=== PATIENT | male | born 1945 | race Caucasian/White ===

== ENCOUNTER 2018-09-20 13:22 | Observation (INO) ==
--- NOTE | 2018-09-20 14:17 | ED ---
HPI General Chief Complaint: Arrhythmia / Palpitations Stated Complaint: doc sent/abnl EKG Time Seen by Provider: 09/20/18 14:05 Source: patient Mode of arrival: ambulatory Limitations: no limitations History of Present Illness HPI narrative: 73-year-old male with PMH of A. fib, HTN, on diltiazem, metoprolol, aspirin and Eliquis with an implanted loop recorder presents the ED for evaluation of 3-day history of palpitations and upper abdominal discomfort. He denies headache, vision changes, dizziness, weakness. He endorses history of appendectomy. The patient denies shortness of breath, nausea, vomiting, diaphoresis. He endorses well formed nonbloody stools daily. He states that he went to his PCP today, was found to be in A. flutter and was sent to the emergency room. States that he ran out of Eliquis 3 days ago. He is non- smoker. He is followed by Dr. Sherman. Related Data Home Medications Medication Instructions Recorded Confirmed apixaban [Eliquis] 5 mg PO BID 09/20/18 09/20/18 aspirin [Aspirin Low Dose] 81 mg PO BID 09/20/18 09/20/18 bupropion HCl [Wellbutrin XL] 150 mg PO QAM 09/20/18 09/20/18 diltiazem HCl 360 mg PO DAILY 09/20/18 09/20/18 metoprolol tartrate 25 mg PO BID 09/20/18 09/20/18 Allergies Allergy/AdvReac Type Severity Reaction Status Date / Time No Known Allergies Allergy Verified 09/20/18 13:40 Review of Systems ROS: all other systems reviewed are negative [facility] Medical History Medical History Afib (Acute) Bladder cancer (Acute) Hypertension (Acute) Prostate cancer (Acute) Status post placement of implantable loop recorder (Acute) Surgical History Surgical History History of appendectomy (Acute) Social History Social History Substance History: No History of Abuse Smoking Status: Former smoker How Often Do You Have a Drink Containing Alcohol: 4 or more times a week Recent Travel in [facility] within the Last 8 Weeks: No Recent Out of Country Travel within the Last 8 Weeks: No Immunization History Tetanus Immunization: Unsure Exam Narrative Exam Narrative: GENERAL: Well-nourished, well-developed, pleasant white male in no acute distress. SKIN: Focused skin assessment warm/dry. HEAD: Atraumatic. Normocephalic. EYES: Pupils equal and round. No scleral icterus. No injection or drainage. ENT: No nasal bleeding or discharge. Mucous membranes pink and moist. NECK: Trachea midline. No JVD. CARDIOVASCULAR: Irregularly irregular rate and rhythm. Holosystolic murmur. RESPIRATORY: No accessory muscle use. Clear to auscultation. Breath sounds equal bilaterally. GASTROINTESTINAL: Abdomen soft, non-tender, nondistended. Hepatic and splenic margins not palpable. MUSCULOSKELETAL: No obvious deformities. No clubbing. No cyanosis. No edema. NEUROLOGICAL: Awake and alert. No obvious cranial nerve deficits. Motor grossly within normal limits. Normal speech. PSYCHIATRIC: Appropriate mood and affect; insight and judgment normal. Course Initial Documented Vital Signs Temperature 98.0 F 09/20/18 13:37 Pulse Rate 105 H 09/20/18 13:37 Respiratory Rate 18 09/20/18 13:37 Blood Pressure 134/92 H 09/20/18 13:37 Pulse Oximetry 96 09/20/18 13:37 Last Documented Vital Signs Temperature 98.0 F 09/20/18 13:37 Pulse Rate 109 H 09/20/18 15:12 Respiratory Rate 24 09/20/18 15:12 Blood Pressure 166/81 H 09/20/18 15:12 Pulse Oximetry 96 09/20/18 15:12 Medical Decision Making [facility] Narrative Medical decision making narrative: 73-year-old male with PMH of A. fib, HTN, on diltiazem, metoprolol, aspirin and Eliquis with an implanted loop recorder presents the ED for evaluation of 3-day history of palpitations. States that he ran out of Eliquis 3 days ago. He is non-smoker. He is followed by Dr. Sherman. EKG reveals a flutter with a rate around 109. Physical exam reveals a regular rate with noted murmur. Otherwise unremarkable. Troponin negative x1. No concerning lab abnormalities. Will admit for observation and evaluation by the supervisor agency appointments. Patient is agreeable with this plan. I spoke with Dr. Monreal who agrees to accept the patient to the medicine service. Please see medicine notes for disposition. Medical Screen Exam Complete: Yes Emergency Medical Condition: Yes Differential Diagnosis Differential Diagnosis: dysrhythmia versus metabolic derangement versus ACS versus other Lab Data Result diagrams: 09/20/18 14:27 09/20/18 14:27 Lab Results 09/20/18 09/20/18 09/20/18 Range/Units 14:27 14:27 14:27 WBC 8.4 (4.0-11.0) th/mm3 RBC 4.45 L (4.50-5.90) mil/mm3 Hgb 15.6 (13.0-17.0) gm/dL Hct 44.7 (39.0-51.0) % MCV 100.5 H (80.0-100.0) fL MCH 35.1 H (27.0-34.0) pg MCHC 34.9 (32.0-36.0) % RDW 13.8 (11.6-17.2) % Plt Count 210 (150-450) th/mm3 MPV 7.9 (7.0-11.0) fL Neut % (Auto) 55.2 (16.0-70.0) % Lymph % (Auto) 29.7 (9.0-44.0) % [place] % (Auto) 12.5 H (0.0-8.0) % Eos % (Auto) 1.9 (0.0-4.0) % Baso % (Auto) 0.7 (0.0-2.0) % Neut # (Auto) 4.6 (1.8-7.7) th/mm3 Lymph # (Auto) 2.5 (1.0-4.8) th/mm3 [place] # (Auto) 1.0 H (0.0-0.9) th/mm3 Eos # (Auto) 0.2 (0.0-0.4) th/mm3 Baso # (Auto) 0.1 (0.0-0.2) th/mm3 WBC Differential . Differential Comment Auto diff final PT 10.7 (9.8-11.6) sec INR 1.1 Ratio Sodium 137 (136-145) meq/L Potassium 4.3 (3.5-5.1) meq/L Chloride 105 (98-107) meq/L Carbon Dioxide 24.8 (21.0-32.0) meq/L Anion Gap 7 (5-15) meq/L BUN 15 (7-18) mg/dL Creatinine 0.91 (0.60-1.30) mg/dL Estimated GFR 81 L (>89) mL/min Random Glucose 102 (74-106) mg/dL Calcium 8.4 L (8.5-10.1) mg/dL Total Bilirubin 1.0 (0.2-1.0) mg/dL AST 40 H (15-37) U/L ALT 38 (12-78) U/L Alkaline Phosphatase 102 (45-117) U/L Troponin I Less than 0.02 L (0.02-0.05) ng/mL Total Protein 7.9 (6.4-8.2) g/dL Albumin 3.9 (3.4-5.0) g/dL Lipase 138 (73-393) U/L Imaging Data Radiologist's impression: Chest X-Ray 09/20/18 14:19 CONCLUSION: 1. No acute cardiopulmonary disease. ECG Data EKG Prior to Arrival: Yes Attestation: I personally reviewed and interpreted this ECG as follows: Interpretation: Rate 91, a flutter. LAD. No acute ST changes. Reviewed by . Discharge Plan Discharge Disposition Patient Disposition: ED Admit(ED Internal Use Only) Discharge Order Discharge Orders: ED Use Only Admit Order (Routine); Ordered 09/20/18 Ordered By: Frances Gonzales Physicians Team ED Provider: Jenny Worthington ED Midlevel Provider: Frances Gonzales Primary Care Provider: Ebony Coyle Attending Provider: Zac Monreal Other Providers: Hugo Vazquez Discharge Interventions Interventions: Vital Signs Last Done: 09/20/18 15:12 Status ED Status: Admitted Observation Patient
[2018-09-20 14:46] LABS: Baso # (Auto) 0.1 th/mm3 (0.0-0.2); Baso % (Auto) 0.7 % (0.0-2.0); Eos # (Auto) 0.2 th/mm3 (0.0-0.4); Eos % (Auto) 1.9 % (0.0-4.0); Hematocrit 44.7 % (39.0-51.0); Hemoglobin 15.6 gm/dL (13.0-17.0); Lymph # (Auto) 2.5 th/mm3 (1.0-4.8); Lymph % (Auto) 29.7 % (9.0-44.0); Mean Corpuscular HGB Conc 34.9 % (32.0-36.0); Mean Corpuscular Hemoglobin 35.1 pg (27.0-34.0); Mean Corpuscular Volume 100.5 fL (80.0-100.0); Mean Platelet Volume 7.9 fL (7.0-11.0); Mono % (Auto) 12.5 % (0.0-8.0); Neut # (Auto) 4.6 th/mm3 (1.8-7.7); Neut % (Auto) 55.2 % (16.0-70.0); Platelet Count 210 th/mm3 (150-450); Red Blood Count 4.45 mil/mm3 (4.50-5.90); Red Cell Distribution Width 13.8 % (11.6-17.2); White Blood Count 8.4 th/mm3 (4.0-11.0)
[2018-09-20 15:06] LABS: Alkaline Phosphatase 102 U/L (45-117); Total Protein 7.9 g/dL (6.4-8.2)
[2018-09-20 15:07] LABS: Alanine Aminotransferase 38 U/L (12-78); Albumin 3.9 g/dL (3.4-5.0); Anion Gap 7 meq/L (5-15); Aspartate Aminotransferase 40 U/L (15-37); Blood Urea Nitrogen 15 mg/dL (7-18); Calcium 8.4 mg/dL (8.5-10.1); Carbon Dioxide 24.8 meq/L (21.0-32.0); Chloride 105 meq/L (98-107); Glomerular Filtration Rate 81 mL/min (>89); Glucose,Random 102 mg/dL (74-106); Lipase 138 U/L (73-393); Potassium 4.3 meq/L (3.5-5.1); Sodium 137 meq/L (136-145)
[2018-09-20 15:12] LABS: INR 1.1 Ratio; Prothrombin Time 10.7 sec (9.8-11.6)
--- NOTE | 2018-09-20 15:31 | XR ---
EXAM DATE: 09/20/2018 3:11 PM EST AGE/SEX: 73 years / Male INDICATIONS: Chest pressure, sent by doctor, abnormal EKG CLINICAL DATA: This is the patient's initial encounter. Patient reports that signs and symptoms have been present for 1 day and indicates a pain score of 0/10. MEDICAL/SURGICAL HISTORY: Chronic obstructive pulmonary disease. Emphysema. atrial flutter . loop recorder COMPARISON: POI, XR CHEST PA AND LAT, 11/19/2017. . FINDINGS: Cardiac event monitor stable in position. No new focal pleural or parenchymal opacities. The cardiome diastinal contours are unremarkable. Osseous structures are intact. CONCLUSION: 1. No acute cardiopulmonary disease. Electronically signed by: Elie Johns MD 09/20/2018 3:30 PM EST
[2018-09-20] MEDS ORDERED: Acetaminophen 325 MG Tablet PO PRN (15:52)
[2018-09-20] MEDS ORDERED: Bisacodyl 10 MG Supp RECTAL PRN (15:52)
--- NOTE | 2018-09-20 16:07 | P.HPIM ---
History of Present Illness Primary Care Physician: Ebony Coyle Chief Complaint: weakness, abdominal discomfort History of Present Illness: 73-yo m with h/o A. fib, HTN who was referred to the ER by his PCP for evaluation of Atrial flutter. Patient reports having general malaise and abdominal discomfort for the last 3 days. He went to his PCP today for evaluation was found to be in A.flutter, hence was referred here. He denies palpitations, dizziness/lightheadedness,shortness of breath or chest pain. No syncope. No exertional symptoms. No nausea or vomiting. He has not taken his medication today. He says he has a loop recorder inserted 3 years ago. ROS is negative except as stated in HPI. On presentation in ER patient noted to be in A flutter, rate ~110. 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 Review of Systems Review of Systems: all other systems reviewed are negative [facility] Medical History Medical History Afib (Acute) Bladder cancer (Acute) Hypertension (Acute) Prostate cancer (Acute) Status post placement of implantable loop recorder (Acute) Surgical History Surgical History History of appendectomy (Acute) Social History Social History Substance History: No History of Abuse Smoking Status: Former smoker How Often Do You Have a Drink Containing Alcohol: 4 or more times a week Recent Travel in [facility] within the Last 8 Weeks: No Recent Out of Country Travel within the Last 8 Weeks: No Immunization History Tetanus Immunization: Unsure Medications and Allergies Allergies Allergy/AdvReac Type Severity Reaction Status Date / Time No Known Allergies Allergy Verified 09/20/18 13:40 Home Medications Medication Instructions Recorded Confirmed Type apixaban [Eliquis] 5 mg PO BID 09/20/18 09/20/18 History aspirin [Aspirin Low Dose] 81 mg PO BID 09/20/18 09/20/18 History bupropion HCl [Wellbutrin XL] 150 mg PO QAM 09/20/18 09/20/18 History diltiazem HCl 360 mg PO DAILY 09/20/18 09/20/18 History metoprolol tartrate 25 mg PO BID 09/20/18 09/20/18 History Active Medications: Active Medications Acetaminophen (Tylenol) 650 mg PO Q4H PRN PRN Reason: Temp > 100.4 Al Hydroxide/Mg Hydroxide (Milk Of Magnesia Liq) 30 ml PO Q12H PRN PRN Reason: Mild Constipation Apixaban (Eliquis) 5 mg PO BID YENIFER Aspirin (Ecotrin) 81 mg PO BID YENIFER Bisacodyl (Dulcolax Supp) 10 mg RECTAL DAILY PRN PRN Reason: SEVERE CONSITIPATION Bupropion HCl (Wellbutrin Xl) 150 mg PO QAM YENIFER Lactulose (Lactulose Liq) 30 ml PO DAILY PRN PRN Reason: SEVERE CONSITIPATION Metoprolol Tartrate (Lopressor) 25 mg PO BID YENIFER Non-Formulary Medication (Diltiazem Hcl [Diltiazem Hcl]) 360 mg PO DAILY YENIFER Senna/Docusate Sodium (Helen-Colace) 1 tab PO BID YENIFER Sennosides (Senokot) 17.2 mg PO Q12H PRN PRN Reason: Moderate Constipation Sodium Chloride (Ns Flush) 2 ml IV.FLUSH UNSCH PRN PRN Reason: FLUSH AFTER USING IV ACCESS Sodium Chloride (Ns Flush) 2 ml IV.FLUSH BID YENIFER Sodium Chloride (Ns Flush) 2 ml IV.FLUSH PRN PRN PRN Reason: FLUSH AFTER USING IV ACCESS Physical Exam Vital signs: Last Vital Signs Temp 98.0 F 09/20/18 13:37 Pulse 109 H 09/20/18 15:12 Resp 24 09/20/18 15:12 BP 166/81 H 09/20/18 15:12 Pulse Ox 96 09/20/18 15:12 Intake & Output 09/18/18 09/19/18 09/20/18 09/21/18 06:59 06:59 06:59 06:59 Weight 96.162 kg Narrative: GENERAL: elderly man, not in distress CARDIOVASCULAR:tachycardic, regularly irregular rhythm, soft blowing murmur LUSB , no gallops, or rubs. RESPIRATORY: CTAB.No wheezes, rales, or rhonchi. GASTROINTESTINAL: Abdomen soft, non-tender, nondistended. Normal active bowel sounds MUSCULOSKELETAL: Extremities without clubbing, cyanosis, or edema. NEURO: Alert & Oriented x4 to person, place, time, situation. Moves all ext x4 Results Labs CBC & Chem 7: 09/20/18 14:27 09/20/18 14:27 Imaging Impressions Chest X-Ray 09/20/18 14:19 CONCLUSION: 1. No acute cardiopulmonary disease. Caprini VTE Risk Assessment Caprini VTE Risk Assessment: No/Low Risk (score <= 1) Caprini Risk Assessment Model: Point Value = 1 Point Value = 2 Point Value = 3 Point Value = 5 Age 41-60 Minor surgery BMI > 25 kg/m2 Swollen legs Varicose veins or History of unexplained or recurrent spontaneous Oral contraceptives or hormone replacement Sepsis (< 1 month) Serious lung disease, including pneumonia (< 1 month) Abnormal pulmonary function Acute myocardial infarction Congestive heart failure (< 1 month) History of inflammatory bowel disease Medical patient at bed rest Age 61-74 Arthroscopic surgery Major open surgery (> 45 min) Laparoscopic surgery (> 45 min) Malignancy Confined to bed (> 72 hours) Immobilizing plaster cast Central venous access Age >= 75 History of VTE Family history of VTE Factor V Leiden Prothrombin [id number] Lupus anticoagulant Anticardiolipin antibodies Elevated serum homocysteine Heparin-induced thrombocytopenia Other congenital or acquired thrombophilia Stroke (< 1 month) Elective arthroplasty Hip, pelvis, or leg fracture Acute spinal cord injury (< 1 month) Prophylaxis Regimen: Total Risk Factor Score Risk Level Prophylaxis Regimen 0-1 Low Early ambulation 2 Moderate Order ONE of the following: *Sequential Compression Device (SCD) *Heparin 5000 units SQ BID 3-4 Higher Order ONE of the following medications: *Heparin 5000 units SQ TID *Enoxaparin/Lovenox 40 mg SQ daily (WT < 150 kg, CrCl > 30 mL/min) *Enoxaparin/Lovenox 30 mg SQ daily (WT < 150 kg, CrCl > 10-29 mL/min) *Enoxaparin/Lovenox 30 mg SQ BID (WT < 150 kg, CrCl > 30 mL/min) AND/OR *Sequential Compression Device (SCD) 5 or more Highest Order ONE of the following medications: *Heparin 5000 units SQ TID (Preferred with Epidurals) *Enoxaparin/Lovenox 40 mg SQ daily (WT < 150 kg, CrCl > 30 mL/min) *Enoxaparin/Lovenox 30 mg SQ daily (WT < 150 kg, CrCl > 10-29 mL/min) *Enoxaparin/Lovenox 30 mg SQ BID (WT < 150 kg, CrCl > 30 mL/min) AND *Sequential Compression Device (SCD) Assessment and Plan Plan 73 yo M with h/o HTN,Atrial fibrillation who presented to ER after being referred by his PCP for evaluation for Atrial flutter. Atrial Flutter-- variable conduction, rate ~110. troponin negative. -resume his usual rate control home medication, resume Apixaban. monitor on telemetry. 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 check TSH. HTN-uncontrolled, he has not taken his meds,which will be resumed. low salt diet. Macrocytosis--H/h normal. check B12 and TSH levels. DVT ppx-already anticoagulated as above.
[2018-09-20] MEDS: Metoprolol Tartrate 25 MG Tablet PO SCH ×2 (17:32→20:11)
[2018-09-20] MEDS: buPROPion 150 MG 12 HR Tablet PO SCH (17:35)
--- NOTE | 2018-09-20 19:30 | ECG ---
Date Performed: 09/20/2018 Time Performed: 13:43:31 PTAGE: 73 years EKG: ATRIAL FLUTTER WITH VARIABLE BLOCK MARKED LEFT AXIS DEVIATION ABNORMAL ECG NO PREVIOUS TRACING DOCTOR: Frances Monge Interpretating Date/Time 09/23/2018 07:35:12
[2018-09-20] MEDS: Senna/Docusate Sodium 8.6/50 MG Tablet PO SCH (20:12)
--- NOTE | 2018-09-20 21:28 | ECG ---
Date Performed: 09/20/2018 Time Performed: 17:09:59 PTAGE: 73 years EKG: ATRIAL FLUTTER WITH RAPID VENTRICULAR RESPONSE ABNORMAL ECG PREVIOUS TRACING : 09/20/2018 13.43 Since the previous tracing, no significant change noted DOCTOR: Frances Monge Interpretating Date/Time 09/20/2018 21:27:56
--- NOTE | 2018-09-20 23:49 | MB ---
cc: Hugo Vazquez DO DATE: 09/20/2018 REASON FOR CONSULTATION: Atrial flutter. HISTORY OF PRESENT ILLNESS: Rachelle Espinal is a pleasant 73-year-old male who sees my partner, Dr. Derrick Sherman in the office and presented to [facility] Emergency Room at the request of his primary care physician. He was in to see Dr. Ebony Coyle today and apparently was found to be in atrial flutter with a rapid ventricular response. He has had general malaise and some abdominal discomfort for the past 3 days. Because of his atrial flutter with rapid response, he was sent to the emergency room. He denies palpitations, dizziness, lightheadedness, shortness of breath or chest pain. In seeing him, he is currently hemodynamically stable. PAST MEDICAL HISTORY: 1. Atrial fibrillation/atrial flutter. 2. Bladder cancer. 3. Hypertension. 4. Prostate cancer. PAST SURGICAL HISTORY: [employer] loop recorder placement (02/27/2016, serial number [id number]). ALLERGIES: NO KNOWN DRUG ALLERGIES. MEDICATIONS: 1. Aspirin 81 mg b.i.d. 2. Metoprolol 25 mg b.i.d. 3. Cardizem-CD 360 mg daily. 4. Wellbutrin XL 150 mg daily. 5. Eliquis 5 mg b.i.d. FAMILY HISTORY: Denies sudden cardiac within the family. SOCIAL HISTORY: The patient is a former smoker. He drinks occasionally. Denies drug abuse. REVIEW OF SYSTEMS: Fourteen systems were reviewed including osteopathic. Pertinent positives and negatives above, otherwise negative. PHYSICAL EXAMINATION: VITAL SIGNS: Temperature 97.7, heart rate 109, blood pressure 166/81, respirations 24, pulse oximetry 96% on room air. GENERAL: The patient appears well, in no acute distress, alert, awake and oriented x 3. HEENT: Extraocular muscles intact. Mucous membranes moist. NECK: Supple. No JVD at 45 degrees. No carotid bruits heard bilaterally. Carotid upstroke is brisk in nature. HEART: Irregularly irregular. Positive first and second heart sounds with no noted murmurs, gallops or rubs. LUNGS: Clear to auscultation bilaterally. No wheezes, rales or rhonchi. ABDOMEN: Soft, nontender, nondistended. No organomegaly noted. EXTREMITIES: Show no clubbing, cyanosis or edema. Femoral and distal pulses are intact bilaterally. NEUROLOGIC: No focal deficits. SKIN: Warm, dry and intact. OSTEOPATHIC: No kyphoscoliosis, lordosis or paraspinal tender points. LABORATORY DATA: Hemoglobin 15.6, hematocrit 44.7, platelets 210. Potassium 4.3, BUN 15, creatinine 0.91. Troponin less than 0.02. Electrocardiogram (09/20/2018 at 1709): Atrial flutter with rapid ventricular response. IMPRESSION: 1. Atrial flutter with rapid ventricular response. 2. Hypertension. 3. Malaise. RECOMMENDATIONS: 1. Mr. Espinal presented with atrial flutter with rapid ventricular response. In review of office notes, it appears that he is mostly controlled, although he does have some episodes of rapid ventricular response on his previous loop recorder interrogation in the office. 2. He is currently on metoprolol and Cardizem, and we will continue these. 3. He has recently stopped Eliquis over the past few days, as [facility] and its extremely expensive. He plans on stopping by to get samples to cover him through September. 4. We will plan on restarting him on his Eliquis as well as his other medications. 5. We will keep him n.p.o. after midnight and reevaluate him tomorrow and if still having trouble controlling his heart rate, we will consider a JAMEL with cardioversion to try and place him back into sinus rhythm. 6. If unable to control his heart rate further, whether patient or outpatient, consideration could be made for an atrial flutter ablation with Dr. Vanessa. Thank you for allowing me to see Danielle Espinal. If there are any questions, please do not hesitate to call. Hugo Vazquez, DO VGP/regnie/rr , 09:46 PM , 09:58 PM
[2018-09-21] MEDS: buPROPion 150 MG 12 HR Tablet PO SCH (08:12)
[2018-09-21] MEDS: Metoprolol Tartrate 25 MG Tablet PO SCH (08:12)
[2018-09-21] MEDS: Senna/Docusate Sodium 8.6/50 MG Tablet PO SCH (08:13)
[2018-09-21] MEDS ORDERED: dilTIAZem CD 180 MG Capsule PO SCH (09:00)
[2018-09-21 10:19] LABS: Magnesium 2.3 mg/dL (1.5-2.5)
[2018-09-21 10:44] LABS: Thyroid Stimulating Hormone 0.941 uIU/mL (0.358-3.740)
--- NOTE | 2018-09-21 11:32 | P.PN ---
Subjective Interval history: Nursing denies any acute changes overnight. Patient himself says he feels fine. Denies any pain. Says the only thing he felt yesterday that prompted him to go to his PCPs office (was a window directed him to come to the ER for an abnormal EKG close) was a hard to describe chest sensation which she best matches with a feeling you get after working out excessively. Denies any pressure sensation, denies palpitations since last night. Denies any chest pains. Physical Exam Vital signs: Vital Signs 09/20/18 13:37 09/20/18 14:03 09/20/18 14:29 Temperature 98.0 F Pulse Rate 105 H 69 108 H Respiratory Rate 18 19 Blood Pressure 134/92 H 139/99 H Pulse Oximetry 96 98 96 09/20/18 15:12 09/20/18 17:32 09/20/18 20:00 Temperature 97.7 F 98.4 F Pulse Rate 109 H 100 H 96 H Respiratory Rate 24 22 19 Blood Pressure 166/81 H 172/97 H 154/90 H Pulse Oximetry 96 97 98 09/21/18 00:00 09/21/18 08:00 09/21/18 09:02 Temperature 97.9 F 97.6 F Pulse Rate 85 70 Respiratory Rate 19 18 Blood Pressure 143/84 H 138/81 138/81 Pulse Oximetry 96 97 Intake & Output 09/20/18 09/21/18 09/21/18 18:59 06:59 18:59 Intake Total 220 / 220 Balance 220 / 220 Weight 96.162 kg Intake: Oral 220 / 220 Other: Date of Last Bowel Movement 09/19/18 Weight On Admission 96.162 kg Narrative: 3/6 ejection murmur, irregular heart rhythm, regular heart rate that slightly fluctuates to mildly tachycardic Clear lungs bilaterally, unlabored breathing No lower extremity edema Awake and alert Results - Labs CBC & Chem 7: 09/20/18 14:27 09/20/18 14:27 Laboratory Results - last 24 hr 09/20/18 09/20/18 09/20/18 14:27 14:27 14:27 WBC 8.4 RBC 4.45 L Hgb 15.6 Hct 44.7 MCV 100.5 H MCH 35.1 H MCHC 34.9 RDW 13.8 Plt Count 210 MPV 7.9 Neut % (Auto) 55.2 Lymph % (Auto) 29.7 [place] % (Auto) 12.5 H Eos % (Auto) 1.9 Baso % (Auto) 0.7 Neut # (Auto) 4.6 Lymph # (Auto) 2.5 [place] # (Auto) 1.0 H Eos # (Auto) 0.2 Baso # (Auto) 0.1 WBC Differential . Differential Comment Auto diff final PT 10.7 INR 1.1 Sodium 137 Potassium 4.3 Chloride 105 Carbon Dioxide 24.8 Anion Gap 7 BUN 15 Creatinine 0.91 Estimated GFR 81 L Random Glucose 102 Calcium 8.4 L Magnesium Total Bilirubin 1.0 AST 40 H ALT 38 Alkaline Phosphatase 102 Troponin I Less than 0.02 L Total Protein 7.9 Albumin 3.9 Lipase 138 Vitamin B12 TSH 09/20/18 14:27 WBC RBC Hgb Hct MCV MCH MCHC RDW Plt Count MPV Neut % (Auto) Lymph % (Auto) [place] % (Auto) Eos % (Auto) Baso % (Auto) Neut # (Auto) Lymph # (Auto) [place] # (Auto) Eos # (Auto) Baso # (Auto) WBC Differential Differential Comment PT INR Sodium Potassium Chloride Carbon Dioxide Anion Gap BUN Creatinine Estimated GFR Random Glucose Calcium Magnesium 2.3 Total Bilirubin AST ALT Alkaline Phosphatase Troponin I Total Protein Albumin Lipase Vitamin B12 718 TSH 0.941 - Imaging Impressions Chest X-Ray 09/20/18 14:19 CONCLUSION: 1. No acute cardiopulmonary disease. Assessment and Plan - Plan 73 yo M with h/o HTN,Atrial fibrillation who presented to ER after being referred by his PCP for evaluation for Atrial flutter. Atrial Flutter-- -continue home Eliquis, still slightly tachycardic this morning, on scheduled for JAMEL to rule out any cardiac thrombus and then undergo cardioversion -Continue home metoprolol and diltiazem HTN-uncontrolled -Continue home medications, he has not taken his meds,which will be resumed. low salt diet. Macrocytosis--B12 and TSH pending - wnl DVT ppx-already anticoagulated as above. Addendum: Discussed case with cardiology, patient likely has an intracardiac thrombus, cardioversion was aborted. Findings discussed w/ pt and daughter. Patient was emphasized that he needed to get a dose of Eliquis tonight - either to stay inpatient until evening dose or as an outpatient but again tonight. He is expected to get samples from foot piece assembler office, daughter reports family member is getting them today from office. Patient has met maximum benefit from hospitalization and is clinically stable for discharge. Patient was advised to refrain or abort any exertional activities should he start to get symptomatic with any chest pain or tachycardia or palpitations. Advised close f/u with cardiology outpt. On reexamination patient is awake and alert, no acute distress. Heart rate and rhythm are both regular now, murmur is 3/6 ejection unchanged.
--- NOTE | 2018-09-22 00:49 | P.PNCA ---
Subjective Interval history: No events overnight Aflutter on telemetry Medications and Allergies Active Medications: Active Medications Acetaminophen (Tylenol) 650 mg PO Q4H PRN PRN Reason: Temp > 100.4 Al Hydroxide/Mg Hydroxide (Milk Of Magnesia Liq) 30 ml PO Q12H PRN PRN Reason: Mild Constipation Apixaban (Eliquis) 5 mg PO BID [facility] Last Admin: 09/21/18 08:12 Dose: 5 mg Aspirin (Ecotrin) 81 mg PO BID [facility] Last Admin: 09/21/18 08:12 Dose: Not Given Bisacodyl (Dulcolax Supp) 10 mg RECTAL DAILY PRN PRN Reason: SEVERE CONSITIPATION Bupropion HCl (Wellbutrin Sr) 150 mg PO DAILY [facility] Last Admin: 09/21/18 08:12 Dose: 150 mg Diltiazem HCl (Cardizem Cd 24hr) 360 mg PO DAILY [facility] Last Admin: 09/21/18 08:12 Dose: 360 mg Lactulose (Lactulose Liq) 30 ml PO DAILY PRN PRN Reason: SEVERE CONSITIPATION Metoprolol Tartrate (Lopressor) 25 mg PO BID [facility] Last Admin: 09/21/18 08:12 Dose: 25 mg Senna/Docusate Sodium (Helen-Colace) 1 tab PO BID [facility] Last Admin: 09/21/18 08:13 Dose: Not Given Sennosides (Senokot) 17.2 mg PO Q12H PRN PRN Reason: Moderate Constipation Sodium Chloride (Ns Flush) 2 ml IV.FLUSH BID [facility] Last Admin: 09/21/18 08:13 Dose: 2 ml Sodium Chloride (Ns Flush) 2 ml IV.FLUSH PRN PRN PRN Reason: FLUSH AFTER USING IV ACCESS Allergies Allergy/AdvReac Type Severity Reaction Status Date / Time No Known Allergies Allergy Verified 09/20/18 13:40 Home Medications Medication Instructions Recorded Confirmed Type apixaban [Eliquis] 5 mg PO BID 09/20/18 09/20/18 History aspirin [Aspirin Low Dose] 81 mg PO BID 09/20/18 09/20/18 History bupropion HCl [Wellbutrin XL] 150 mg PO QAM 09/20/18 09/20/18 History diltiazem HCl 360 mg PO DAILY 09/20/18 09/20/18 History metoprolol tartrate 25 mg PO BID 09/20/18 09/20/18 History Physical Exam Vital signs: Vital Signs 09/21/18 08:00 09/21/18 09:02 Temperature 97.6 F Pulse Rate 110 H 70 Respiratory Rate 18 Blood Pressure 138/81 138/81 Pulse Oximetry 97 97 Intake & Output 09/21/18 09/21/18 09/22/18 06:59 18:59 06:59 Other: Date of Last Bowel Movement 09/19/18 09/21/18 Narrative: GENERAL: NAD, AAOx3 SKIN: Warm and dry. HEAD: Atraumatic. Normocephalic. EYES: Pupils equal and round. No scleral icterus. No injection or drainage. ENT: No nasal bleeding or discharge. Mucous membranes pink and moist. NECK: Trachea midline. No JVD. CARDIOVASCULAR: Irregularly irregular RESPIRATORY: No accessory muscle use. Clear to auscultation. Breath sounds equal bilaterally. GASTROINTESTINAL: Abdomen soft, non-tender, nondistended. Hepatic and splenic margins not palpable. MUSCULOSKELETAL: Extremities without clubbing, cyanosis, or edema. No obvious deformities. NEUROLOGICAL: Awake and alert. No obvious cranial nerve deficits. Motor grossly within normal limits. Five out of 5 muscle strength in the arms and legs. Normal speech. PSYCHIATRIC: Appropriate mood and affect; insight and judgment normal. Results 09/20/18 14:27 09/20/18 14:27 Cardiac Enzymes 09/20/18 Range/Units 14:27 AST 40 H (15-37) U/L Troponin I Less than 0.02 L (0.02-0.05) ng/mL Coagulation 09/20/18 Range/Units 14:27 PT 10.7 (9.8-11.6) sec CBC 09/20/18 Range/Units 14:27 WBC 8.4 (4.0-11.0) th/mm3 RBC 4.45 L (4.50-5.90) mil/mm3 Hgb 15.6 (13.0-17.0) gm/dL Hct 44.7 (39.0-51.0) % Plt Count 210 (150-450) th/mm3 Neut # (Auto) 4.6 (1.8-7.7) th/mm3 Lymph # (Auto) 2.5 (1.0-4.8) th/mm3 [place] # (Auto) 1.0 H (0.0-0.9) th/mm3 Eos # (Auto) 0.2 (0.0-0.4) th/mm3 Baso # (Auto) 0.1 (0.0-0.2) th/mm3 Comprehensive Metabolic Panel 09/20/18 Range/Units 14:27 Sodium 137 (136-145) meq/L Potassium 4.3 (3.5-5.1) meq/L Chloride 105 (98-107) meq/L Carbon Dioxide 24.8 (21.0-32.0) meq/L BUN 15 (7-18) mg/dL Creatinine 0.91 (0.60-1.30) mg/dL Calcium 8.4 L (8.5-10.1) mg/dL AST 40 H (15-37) U/L ALT 38 (12-78) U/L Alkaline Phosphatase 102 (45-117) U/L Total Protein 7.9 (6.4-8.2) g/dL Albumin 3.9 (3.4-5.0) g/dL Intake and Output 09/21/18 09/21/18 09/22/18 14:59 22:59 06:59 Other: Date of Last Bowel Movement 09/21/18 - Imaging and Cardiology Imaging: Impressions Chest X-Ray 09/20/18 14:19 CONCLUSION: 1. No acute cardiopulmonary disease. Assessment and Plan - Assessment (1) Atrial flutter Code(s): I48.92 - Unspecified atrial flutter Status: Acute - Plan 1) Atrial Flutter Originally Aflutter with RVR, but hadn't taken his meds that day Heart rates better controlled on meds 2) Stopped Eliquis due to arellano Started back on it, will supervisor opening and picking samples in the office 3) JAMEL today showing possible left atrial appendage thrombus No cardioversion Continue on current meds including Eliquis 4) Cardiovascularly stable for discharge Follow up with Dr. Sherman
--- NOTE | 2018-09-22 00:57 | ECHRPT ---
Indication: afib and flutter CONCLUSIONS The left ventricular systolic function is low normal with an estimated ejection fraction in the rang e of 50- 55%. Possible thrombus in the left atrial appendage. Atrial septal aneurysm is present (benign finding). No atrial level shunt is demonstrated by color flow Doppler or agitated saline imaging. Descending aorta with mild atherosclerosis. Trace mitral valve regurgitation. BP: / HR: Rhythm: Atrial flutter Technical Quality: Medications Complications Proc. Components Anesthesia at the bedside for sedation FINDINGS LEFT VENTRICLE Normal left ventricular size. The left ventricular systolic function is low normal with an estimated ejection fraction in the rang e of 50- 55%. No regional wall motion abnormalities are present. RIGHT VENTRICLE Grossly normal LEFT ATRIUM The left atrial size is upper limits of normal. RIGHT ATRIUM The right atrial size is normal. ATRIAL APPENDAGES Possible thrombus in the left atrial appendage. ATRIAL SEPTUM Atrial septal aneurysm is present (benign finding). No atrial level shunt is demonstrated by color flow Doppler or agitated saline imaging. AORTA Descending aorta with mild atherosclerosis MITRAL VALVE Structurally normal mitral valve. Trace mitral valve regurgitation. No mitral valve stenosis. AORTIC VALVE Trileaflet aortic valve. Aortic valve sclerosis is present. No aortic valve regurgitation. No aortic valve stenosis. TRICUSPID VALVE Structurally normal tricuspid valve. No tricuspid valve stenosis or regurgitation. VESSELS No pulmonary valve regurgitation or stenosis. Hugo Vazquez DO (Electronically Signed) Final Date:22 September 2018 00:56
== END 2018-09-21 16:59 | disposition home or self-care (01) ==
LOC: NEPC 13:22 → NEDA 13:22 → NEPFCDU 16:30
PROVIDERS: ADMIT Hospitalist; ATTEND Hospitalist
DX: I10 Essential (primary) hypertension; E66.9 Obesity, unspecified; I48.91 Unspecified atrial fibrillation; Z68.31 Body mass index [BMI] 31.0-31.9, adult; D75.89 Other specified diseases of blood and blood-forming organs; I48.92 Unspecified atrial flutter; C67.9 Malignant neoplasm of bladder, unspecified; Z79.01 Long term (current) use of anticoagulants; Z90.49 Acquired absence of other specified parts of digestive tract; C61 Malignant neoplasm of prostate; Z87.891 Personal history of nicotine dependence